=== PATIENT | male | born 1950 | race Caucasian/White ===

== ENCOUNTER 2016-06-20 01:26 | Emergency (ER) | payer OTHER ==
--- NOTE | 2016-06-20 02:08 | C.PDOC ---
History Of Present Illness 66 year old male presents to the ED with complaints of pain and swelling to his left great toe s/p a piece of dry wall falling on it today. Patient states the pain is intermittent and notes he took Tylenol and applied antibiotic cream and vinegar to the toe. Denies change in sensation or any other complaints at this time. Time Seen by Provider: 06/20/16 02:06 Chief Complaint (Nursing): Lower Extremity Problem/Injury History Per: Patient History/Exam Limitations: no limitations Onset/Duration Of Symptoms: Hrs Current Symptoms Are (Timing): Still Present Severity: Mild - Ankle/Foot Description Of Injury: Struck With Object Past Medical History Reviewed: Historical Data, Nursing Documentation, Vital Signs Vital Signs: Last Vital Signs Temp 98.0 F 06/20/16 01:39 Pulse 75 06/20/16 01:39 Resp 16 06/20/16 01:39 BP 158/93 H 06/20/16 01:39 Pulse Ox 97 06/20/16 03:16 - Medical History PMH: No Chronic Diseases Family History: States: Unknown Family Hx - Social History Hx Alcohol Use: Yes Hx Substance Use: No - Immunization History Hx Tetanus Toxoid Vaccination: No Hx Influenza Vaccination: No Hx Pneumococcal Vaccination: No Review Of Systems Except As Marked, All Systems Reviewed And Found Negative. Constitutional: Negative for: Fever, Chills Musculoskeletal: Negative for: Leg Pain Skin: Positive for: Bruising (+Bruising, swelling, and pain to the left great toe) Neurological: Negative for: Weakness, Numbness Physical Exam - Physical Exam Appears: Non-toxic, No Acute Distress Skin: Warm, Dry Head: Atraumatic, Normacephalic Oral Mucosa: Moist Extremity: Normal ROM, No Tenderness, No Calf Tenderness, Capillary Refill (< 2 seconds), No Deformity, Swelling (+Mild swelling to the dorsal aspect of the left great toe), Other (+2.0 cm area of ecchymosis to the dorsal aspect of the left great toe. +10% subungal hematoma to the left great toe) Pulses: Left Dorsalis Pedis: Normal, Right Dorsalis Pedis: Normal Neurological/Psych: Oriented x3, Normal Speech, Normal Cognition, Normal Motor, Normal Sensation ED Course And Treatment O2 Sat by Pulse Oximetry: 97 (Room air) Pulse Ox Interpretation: Normal - Other Rad left great toe X-Ray: Interpreted by Me Interpretation: (+) comminuted fracture of the distal phalanx Medical Decision Making Medical Decision Making: Plan: -Left Foot X-ray -Reassess Ortho shoe was placed on the foot. Disposition - Disposition Referrals: [facility] [Outside] Jake Aguilar DPM [Staff Provider] - Disposition: HOME/ ROUTINE Disposition Time: 03:46 Condition: GOOD Additional Instructions: Follow up with the [facility] within 1-2 days without fail. Return if worsened. 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 - Scribe Statement The provider has reviewed the documentation as recorded by the Scribe Kristin Mitchell. All medical record entries made by the Scribe were at my direction and personally dictated by me. I have reviewed the chart and agree that the record accurately reflects my personal performance of the history, physical exam, medical decision making, and the department course for this patient. I have also personally directed, reviewed, and agree with the discharge instructions and disposition.
[2016-06-20 03:59] VITALS: BP 146/95; PULSE 67; RESP 18; TEMP 98.1
[2016-06-20 06:38] VITALS: O2SAT 97
--- NOTE | 2016-06-20 11:17 | RAD ---
Left foot great toe three views History: Injury and pain. Comparison: None available. Technique: Three views of the left great toe were performed. Findings: Horizontally oriented fracture through 1st distal phalanx with mild anterior distraction of the distal fracture fragment. Moderate hallux valgus deformity. Degenerative changes noted at the 1st MTP and interphalangeal joint spaces. Small punctate radiopaque sclerotic density noted in the anterior talus. Productive change noted at the posterior navicular bone. Impression: Horizontally oriented fracture through 1st distal phalanx with mild anterior distraction of the distal fracture fragment. Moderate hallux valgus deformity. Degenerative changes noted at the 1st MTP and interphalangeal joint spaces. Small punctate radiopaque sclerotic density noted in the anterior talus. Productive change noted at the posterior navicular bone.
== END 2016-06-20 03:59 | disposition home or self-care (01) ==
LOC: C.ER 01:26
DX: S92.422A Displaced fracture of distal phalanx of left great toe, initial encounter for closed fracture (principal); W22.8XXA Striking against or struck by other objects, initial encounter